=== PATIENT | female | born 1990 | race Caucasian/White ===

== ENCOUNTER 2020-12-30 10:36 | Emergency (ER) | payer SELFPAY ==
[2020-12-30 12:18] LABS: BASOPHIL 0.8 % (0-2); EOSINOPHIL 4.1 % (0-5); HCT 46.3 % (37.0-47.0); HGB 15.1 g/dl (12.5-16.0); LYMPHOCYTE 15.4 % (15-48); MCHC 32.6 g/dL (32.0-36.0); MCV 88.9 fL (78.0-100.0); MONOCYTE 9.2 % (0-12); MPV 9.6 fL (6.0-9.5); NRBC 0; PLT 241 K/uL (150-400); RBC 5.21 M/uL (4.20-5.40); WBC 6.1 K/uL (4.0-10.5)
[2020-12-30 12:55] LABS: CORONAVIRUS 2019 SARS-COV-2 NEGATIVE (NEGATIVE); INFLUENZA A NAA NEGATIVE (NEGATIVE)
[2020-12-30 12:55] LABS: ALBUMIN 3.8 g/dL (3.4-5.0); BILIRUBIN - TOTAL 0.6 mg/dL (0.2-1.0); BUN/CREAT RATIO (CALC) 12.1 RATIO; CREATININE 0.66 mg/dL (0.51-0.95); GLOBULIN (CALCULATION) 4.2 g/dL; POTASSIUM 3.4 mmol/L (3.5-5.1)
[2020-12-30] MEDS ORDERED: MEDROL 4MG DOSEP4 MG PO (13:28)
== END 2020-12-30 13:49 | disposition home or self-care (01) ==
LOC: FER 10:36
PROVIDERS: Internal Medicine
DX: R05.9 Cough, unspecified (principal); R06.02 Shortness of breath; B97.4 Respiratory syncytial virus as the cause of diseases classified elsewhere; J45.909 Unspecified asthma, uncomplicated; Z88.0 Allergy status to penicillin; Z20.822 Contact with and (suspected) exposure to COVID-19
CPT/HCPCS: 36415; 71045; 80053; 85025; J1100; U0002